=== PATIENT | male | born 1945 | race Caucasian/White ===

== ENCOUNTER 2017-02-21 08:35 | Emergency (ER) | payer OTHER, MEDICARE ==
[2017-02-21] MEDS ORDERED: methylPREDNISolone Sod Succ/PF 125 MG/2 ML VIAL ONE ×2 (08:42→08:44)
[2017-02-21] MEDS ORDERED: EPINEPHrine 1 MG/ML AMP ONE (08:42)
[2017-02-21] MEDS ORDERED: diphenhydrAMINE 50 MG/ML VIAL ONE (08:42)
[2017-02-21] MEDS ORDERED: Famotidine/PF 20 mg/2ml Vial ONE (08:42)
[2017-02-21] MEDS ORDERED: Sterile Water 10 ML ONE (08:44)
== END 2017-02-21 11:48 | disposition home or self-care (01) ==
LOC: ERS 08:35
DX: T78.40XA Allergy, unspecified, initial encounter (principal); I10 Essential (primary) hypertension; Z79.899 Other long term (current) drug therapy
CPT/HCPCS: 94760; 96372; 96374; 96375; A4216; J0171; J1200; J2930; S0028